=== PATIENT | female | born 1975 | race Caucasian/White ===

== ENCOUNTER 2017-01-20 18:17 | Emergency (ER) | payer OTHER ==
[~2017-01-20] VITALS: Ht 165.1 cm; Wt 69.5 kg
[~2017-01-20 18:17] MED LIST: Z.0.NO CURRENT MEDS; [UNRECOGNIZED DRUG - CODE] PO
[2017-01-20 18:36] VITALS: BP 128/75; PULSE 80; RESP 16; TEMP 99.4; O2SAT 100
[2017-01-20] MEDS ORDERED: MULT1TAB46 PO (19:47)
--- NOTE | 2017-01-20 20:36 | RADRPT ---
EXAM DATE/TIME: 01/20/2017 20:13 [facility] COMPARISON: No previous studies available for comparison. INDICATIONS : Left foot pain post fall. MEDICAL HISTORY : None. SURGICAL HISTORY : None. ENCOUNTER: Initial ACUITY: 1 day PAIN SCORE: 8/10 LOCATION: Left foot. FINDINGS: Three view examination of the left foot demonstrates no soft tissue swelling, dislocation, or fractur e. The tarsal bones appear intact. The interphalangeal and metatarsophalangeal joints are intact. The calcaneus is intact. Bony mineralization is normal. CONCLUSION: Intact left foot. Emiliano Shelton MD on January 20, 2017 at 20:34 Board Certified Radiologist. This report was verified electronically.
--- NOTE | 2017-01-20 20:37 | RADRPT ---
EXAM DATE/TIME: 01/20/2017 20:13 [facility] COMPARISON: No previous studies available for comparison. INDICATIONS : Left ankle pain post fall. MEDICAL HISTORY : None. SURGICAL HISTORY : None. ENCOUNTER: Initial ACUITY: 1 day PAIN SCORE: 8/10 LOCATION: Left ankle. FINDINGS: There is lateral soft tissue swelling. No fracture or subluxation. No radiopaque foreign body. CONCLUSION: Lateral soft tissue swelling without acute bony abnormality. Emiliano Shelton MD on January 20, 2017 at 20:35 Board Certified Radiologist. This report was verified electronically.
--- NOTE | 2017-01-20 20:44 | PD ---
HPI Chief Complaint: Injury Time Seen by Provider: 19:50 Travel History International Travel<30 days: No Contact w/Intl Traveler<30days: No Traveled to known affect area: No History of Present Illness HPI 41 female with chief complaint of left lateral ankle pain status post twisting injury prior to arrival. Patient reports the pain is constant, worse with range of motion of the ankle and weightbearing. Pain slightly relieved with rest. Patient denies numbness/tingling/weakness of the extremity. Pain severity 4/10. PFSH Past Medical History Medical History: Denies Significant Hx Diminished Hearing: No Tetanus Vaccination: Unknown Influenza Vaccination: No ?: Not LMP: last wk Menopausal: No Past Surgical History Section: Yes (1) Social History Alcohol Use: Yes (occassionally ) Tobacco Use: No Substance Use: No Allergies-Medications (Allergen,Severity, Reaction): Coded Allergies: No Known Allergies (Verified , 01/20/17) Reported Meds & Prescriptions Reported Meds & Active Scripts Active Reported Multi Vitamin Daily (Multiple Vitamin) 1 Tab Tab 1 Mg PO DAILY Review of Systems Except as stated in HPI: all other systems reviewed are Neg Physical Exam Narrative GENERAL: Well-nourished, well-developed patient. SKIN: Focused skin assessment warm/dry. HEAD: Normocephalic. EYES: No scleral icterus. No injection or drainage. NECK: Supple, trachea midline. No JVD or lymphadenopathy. CARDIOVASCULAR: Regular rate and rhythm without murmurs, gallops, or rubs. RESPIRATORY: Breath sounds equal bilaterally. No accessory muscle use. GASTROINTESTINAL: Abdomen soft, non-tender, nondistended. MUSCULOSKELETAL: No cyanosis, or edema. Left lower extremity: Notable tenderness to the left lateral malleolus. No deformity. 2+ distal pulses. Normal sensation. Brisk cap refill. BACK: Nontender without obvious deformity. No CVA tenderness. Data Data Last Documented VS Vital Signs Date Time Temp Pulse Resp B/P Pulse Ox O2 Delivery O2 Flow Rate FiO2 01/20/17 18:36 99.4 80 16 128/75 100 Room Air Orders Ankle, Complete (Aev2vim) (01/20/17 ) Foot, Complete ([id number]) (01/20/17 ) Splint Or Brace Apply/Monitor (01/20/17 20:44) Zach Bandage (01/20/17 20:44) Crutches (01/20/17 20:44) Brace Ankle Stirrup (01/20/17 ) [facility] Medical Decision Making Medical Screen Exam Complete: Yes Emergency Medical Condition: Yes Differential Diagnosis Ankle sprain versus ankle fracture versus metatarsal fracture Narrative Course 41 female with chief complaint of left lateral ankle pain status post twisting injury prior to arrival. On exam patient has notable swelling, ecchymosis and tenderness over the lateral aspect of the ankle. Joint is stable and intact. Extremity is neurovascularly intact. X-ray of ankle and foot are negative for fracture. Patient be treated for ankle sprain. Diagnosis Primary Impression: Ankle sprain Qualified Code: S93.402A - Sprain of left ankle, unspecified ligament, initial encounter Referrals: Primary Care Physician Additional Instructions: Review the Zach wrap as directed. With ankle stirrup for the next week. Use the crutches until weightbearing is bearable. Take [id number] Motrin [id number] milligrams by mouth every 6-8 hours as needed for pain. Ice and elevate the extremity. Disposition: 01 DISCHARGE HOME Condition: Stable Kassandra Yoder Jan 20, 2017 20:44
== END 2017-01-20 21:05 | disposition home or self-care (01) ==
LOC: PHEFT 18:17
DX: S93.402A Sprain of unspecified ligament of left ankle, initial encounter (principal); X50.1XXA Overexertion from prolonged static or awkward postures, initial encounter; Y93.9 Activity, unspecified; Y92.9 Unspecified place or not applicable
CPT/HCPCS: 73610; 73630; 99283; E0113; L1906

== ENCOUNTER → 2017-03-25 | Day surgery (SDC) | payer OTHER ==
[~2017-03-25] MED LIST changes: +BUPIVACAINE/EPINEPHRINE 0.25% 50 ML VIAL ONE; +KETOROLAC TROMETHAMINE 30 MG/ML (IVP) VIAL IV PUSH ONE; +LACTATED RINGER'S 1000 ML INJ 1,000 ML ONE; +MIDAZOLAM HCL 2 MG/2 ML VIAL ONE; +MULT1TAB46 PO; +NEOMYCIN/POLYMYXIN/BACITRACIN OINT 15 GM TUBE ONE; +ONDANSETRON HCL 4 MG/2 ML VIAL IV PUSH ONE; +PROPOFOL 200 MG/20 ML AMP IV ONE; -Z.0.NO CURRENT MEDS; -[UNRECOGNIZED DRUG - CODE] PO; +ceFAZolin 2 GM PREMIX 50 ML ONE
--- NOTE | 2017-03-25 11:37 | TN ---
cc: LA STARR M.D. DATE OF SURGERY 03/25/2017 PREOPERATIVE DIAGNOSIS Symptomatic enlarging umbilical hernia. POSTOPERATIVE DIAGNOSIS Symptomatic enlarging umbilical hernia. PROCEDURE PERFORMED Primary repair umbilical hernia. SURGEON La Starr MD [employer] Anna Chaidez [facility] ANESTHESIA General LMA COMPLICATIONS None INDICATIONS FOR PROCEDURE Ms. Avila is a pleasant 41-year-old female who developed an umbilical hernia after her most recent . It was becoming large and causing her discomfort. She was referred for surgical evaluation. The risks and benefits of a primary repair versus mesh repair was discussed with her and she was agreeable. The patient preferred primary repair if possible and I advised her we would evaluate the size of the hernia and the quality of the tissue to determine this. DETAILS The patient was identified, brought to the operating room, placed supine on the operating table. After adequate general anesthesia was achieved with LMA, the anterior abdomen was prepped and draped in standard surgical fashion. The infraumbilical space anesthetized with quarter percent Marcaine. An infraumbilical incision was made. Dissection was carried down through the subcutaneous tissue and the umbilical stalk was identified. The umbilical stalk was then cleaned off circumferentially. The umbilical stalk was then dissected off of the hernia sac. The hernia sac was opened and found to contain preperitoneal fat which was easily reduced. Next, the umbilical fascia was dissected circumferentially around the defect. The defect was about 1-2 cm in diameter and barely entered the tip of my index finger. Tissue quality was good. I therefore elected to perform a primary repair. Primary repair was accomplished using a 0-Prolene interrupted x3. With this, the defect was completely obliterated and the tissue was under no significant tension. Quarter percent Marcaine was injected around the primary repair site. The umbilical stalk was then tacked down to the abdominal wall fascia using a 3-0 Vicryl. Subcutaneous tissues were closed 3-0 Vicryl and skin was closed with 4-0 Vicryl. The patient tolerated the procedure well, was awakened and brought to recovery in stable condition. Please note the [facility] accounting assistant was medically necessary due to her specialized surgical skills and extensive knowledge of my surgical technique. MD BEV David/PATRICIA :22 AM /11:27 AM
== END | disposition home or self-care (01) ==
LOC: ESDC 09:08
PROVIDERS: ATTEND Surgery Trauma Surgery
DX: K42.9 Umbilical hernia without obstruction or gangrene (principal)
CPT/HCPCS: 00750; 49585; J0690; J1885; J2250; J2405; J3010; J7120